=== PATIENT | male | born 1980 | race African-American/Black ===

== ENCOUNTER 2018-09-11 00:02 | Emergency (ER) | payer MEDICAID ==
[~2018-09-11] VITALS: Ht 175.3 cm; Wt 79.0 kg
[2018-09-11] MEDS ORDERED: KETOROLAC 60MG/2ML VIAL IM NR (01:45)
[2018-09-11] MEDS ORDERED: LIDOCAINE HCL 1% 20ML VIAL (Pyxis) INJ INFIL ONE (02:45)
[2018-09-11 04:50] VITALS: BP 119/69
== END 2018-09-11 04:55 | disposition home or self-care (01) ==
LOC: ER 01:23
DX: S62.614A Displaced fracture of proximal phalanx of right ring finger, initial encounter for closed fracture (principal); S63.92XA Sprain of unspecified part of left wrist and hand, initial encounter; I10 Essential (primary) hypertension; Y04.0XXA Assault by unarmed brawl or fight, initial encounter; Y93.89 Activity, other specified; Y92.830 Public park as the place of occurrence of the external cause
CPT/HCPCS: 26605; 70450; 73130; 73552; 96372; 99284; J1885; J3490